=== PATIENT | female | born 1980 | race Hispanic/Latino ===

== ENCOUNTER 2021-12-25 15:08 | Emergency (ER) | payer OTHER ==
[~2021-12-25] VITALS: Ht 162.6 cm; Wt 78.0 kg
[2021-12-25 15:10] VITALS: BP 126/63
[2021-12-25 15:49] LABS: BASOPHILS % (AUTO) 0.3 % (0.0-5.0); EOSINOPHILS % (AUTO) 1.1 % (0.0-8.0); HEMATOCRIT 40.1 % (36-48); LYMPHOCYTES % (AUTO) 17.6 % (21.0-51.0); MEAN CORPUSCULAR HEMOGLOBIN 24.4 pg (27.0-33.0); MEAN CORPUSCULAR HGB CONC 29.9 g/dL (32.0-36.0); MEAN CORPUSCULAR VOLUME 81.5 fL (79-99); MONOCYTES % (AUTO) 7.4 % (3.0-13.0); NEUTROPHILS % (AUTO) 73.3 % (40.0-77.0); PLATELET COUNT (AUTO) 283 K/uL (130-400); RED BLOOD CELL COUNT(AUTO) 4.92 MIL/uL (4.00-5.50); RED CELL DISTRIBUTION WIDTH 14.7 % (11.0-15.5); WHITE BLOOD COUNT (AUTO) 7.4 K/uL (4.8-10.8)
[2021-12-25 15:59] LABS: ALBUMIN 3.4 g/dL (3.5-5.0); BILIRUBIN,TOTAL 0.2 mg/dL (0.2-1.0); CREATININE 0.8 mg/dL (0.5-1.5); POTASSIUM 3.7 mmol/L (3.5-5.1); TOTAL PROTEIN, SERUM 7.5 g/dL (6.0-8.3)
[2021-12-25 16:09] LABS: BILIRUBIN,URINE Moderate (NEGATIVE); COLOR,URINE Dark Yellow (YELLOW); GLUCOSE, URINE (UA) TRACE mg/dL (NEGATIVE); KETONES,URINE Trace mg/dL (NEGATIVE); LEUKOCYTE ESTERASE ,URINE Trace (NEGATIVE); NITRATE,URINE Negative (NEGATIVE); OCCULT BLOOD,URINE Moderate (NEGATIVE); PH,URINE 5.5 (5.0-8.0); PROTEIN,URINE POS 1+ mg/dL (NEGATIVE)
[2021-12-25 16:12] LABS: APPEARANCE,URINE CLOUDY (CLEAR)
[2021-12-25 16:14] LABS: HCG,QUAL RESULT NEGATIVE (NEGATIVE)
[2021-12-25] MEDS ORDERED: ONDANSETRON ODT 4MG TAB ONE (16:51)
[2021-12-25 16:56] LABS: BACTERIA,URINE Few /HPF (None Seen); MUCUS,URINE Few LPF (None Seen); RBC,URINE 0-1 /HPF (0-1); SQUAMOUS EPITHELIAL CELL,UR Moderate /HPF (0-2); WBC,URINE 0-1 /HPF (0-1)
[2021-12-25 16:57] LABS: CALCIUM OXALATE CRYSTALS,UR Moderate /LPF (None Seen)
[2021-12-25] MEDS ORDERED: ONDANSETRON ODT 4MG TAB SL ONE (17:00)
[2021-12-25] MEDS ORDERED: ONDA4TAB10 PO (17:21)
== END 2021-12-25 17:46 | disposition home or self-care (01) ==
LOC: EDH 15:08
DX: A08.4 Viral intestinal infection, unspecified (principal); E11.65 Type 2 diabetes mellitus with hyperglycemia; Z20.822 Contact with and (suspected) exposure to COVID-19; I10 Essential (primary) hypertension
CPT/HCPCS: 36415; 80053; 81001; 81025; 83605; 83690; 85025; 87635; 99283; C9803

== ENCOUNTER 2025-06-08 09:23 | Emergency (ER) | payer SELFPAY ==
[~2025-06-08] VITALS: Ht 162.6 cm; Wt 77.1 kg
[~2025-06-08 09:23] MED LIST: ONDA-243 PO
[2025-06-08] MEDS ORDERED: HYDROcodone/APAP 5/325 1 TAB TABLET PO ONE (10:00)
[2025-06-08] MEDS ORDERED: CLIN-141 PO (10:51)
[2025-06-08] MEDS ORDERED: IBUP-2077 PO (10:51)
--- NOTE | 2025-06-08 10:52 | ERN ---
ED Note History of Present Illness Stated Complaint: TOOTHACHE Chief Complaint: Tooth Ache/Pain Time Seen by MD: 10:10 Dictation: PATIENT IS A 45-YEAR-OLD FEMALE HERE WITH COMPLAINTS OF DENTAL PAIN AND GUM SWELLING TO TOOTH 11. AND 12 ONSET WAS TWO WEEKS AGO. NO FEVER NO CHILLS. SHE HAS BEEN ABLE TO EAT HOWEVER SHE SAID THE AREAS PAINFUL. SHE TOOK TWO AMOXICILLIN SHE GOT FROM [place] YESTERDAY AND SAID SHE IS GOING TO GO NEXT WEEK WHEN SHE GETS PAIN TO HAVE THE DENTAL WORK DONE IN [place]. SHE HAS NO LOCAL DOCTOR IN [facility] AND DOES NOT Allergies: Coded Allergies: No Known Allergies (Unverified Allergy, Unknown, 12/25/21) Home Meds Active Scripts Ibuprofen (Ibuprofen 800 mg Tab) 800 Mg Tab, 800 MG PO Q8H PRN for fever or pain, #30 TAB 0 Refills Prov:BHANU MURRELL NP 06/08/25 Clindamycin HCl (Clindamycin HCl) 300 Mg Capsule, 1 CAP PO QID for 10 Days, #40 CAP 0 Refills TAKE TWO CAPSULES BY MOUTH FOR 1ST DOSE, THEN ONE CAPSULE EVERY 6 HOURS UNTIL GONE. Prov:BHANU MURRELL NP 06/08/25 Ondansetron (Ondansetron Odt) 4 Mg Tab.rapdis, 4 MG PO TIDP, #21 TAB Prov:MAYELA KENNEDY 12/25/21 Past Medical History Past Medical History: Diabetes-Type II, Hypertension Additional Past Medical Hx: NON COMPLIANT W/ MEDS Surgical History: None Family History: Negative Social History: Negative History: Not Applicable LMP: Jun 06, 2025 RN Note Reviewed/Agreed w/PFSH: Yes Review of System Dictation CONSTITUTIONAL: NEGATIVE EXCEPT FOR HPI HEAD/FACE: NEGATIVE EXCEPT FOR HPI EENT: NEGATIVE EXCEPT FOR HPI DENTAL PAIN WITH GINGIVAL WE WILL SWELLING 11. AND12 RESPIRATORY: NEGATIVE EXCEPT FOR HPI GASTROINTESTINAL/ABDOMINAL: NEGATIVE EXCEPT FOR HPI GENITOURINARY: NEGATIVE EXCEPT FOR HPI MUSCULOSKELETAL: NEGATIVE EXCEPT FOR HPI INTEGUMENTARY: NEGATIVE EXCEPT FOR HPI NEUROLOGICAL/PSYCH: NEGATIVE EXCEPT FOR HPI HEMATOLOGIC/LYMPHATIC: NEGATIVE EXCEPT FOR HPI ALL SYSTEMS NEGATIVE, EXCEPT NOTED ABOVE. 13 POINT REVIEW OF SYSTEMS ASSESSED AND ALL NEGATIVE EXCEPT FOR ABOVE. Initial Vital Sign VS Vital Signs Date Time Temp Pulse Resp B/P (MAP) Pulse Ox O2 Delivery O2 Flow Rate FiO2 06/08/25 09:24 98.6 72 16 212/77 99 Room Air 0 06/08/25 11:46 21 Physical Exam Dictation NORMAL EXAM VITAL SIGNS REVIEWED GENERAL APPEARANCE: ALERT, ORIENTED X 3, MILD ACUTE DISTRESS, WELL DEVELOPED, NOURISHED. HEAD AND FACE: NON-TRAUMATIC. EYES: PERRL, PINK CONJUNCTIVAS, EYELID NO TRAUMA, ANTERIOR CHAMBER WITH ARCUS SENILIS. EARS: PINNAS INTACT AND NO SIGNS OF TRAUMA OR ERYTHEMA EAR CANALS CLEAR AND NO DISCHARGE TM NO ERYTHEMA NOSE: NO DISCHARGE, NO BLEEDING. OROPHARYNX: CARIES WITH GINGIVAL ERYTHEMA TENDERNESS TO TOOTH 11. AND 12. PHARYNX CLEAR,NO ERYTHEMA, TONSILS NO EXUDATES, NO ABSCESSES NOTED, MUCOUS MEMBRANE MOIST NECK: SUPPLE, NON-TENDER, NO THYROMEGALY, NO MASSES, NO JVD, NO BRUITS BREAST:DEFERRED CHEST:NO TENDERNESS, NO CREPITUS, NO PARADOXICAL MOVEMENT, NO RETRACTIONS LUNGS:CLEAR, WELL-VENTILATED, SYMMETRIC, NO RALES, NO WHEEZING, NO RHONCHI, NO STRIDOR, GOOD BREATH SOUNDS BILATERALLY HEART: REGULAR RATE, REGULAR RHYTHM, NO MURMUR, NO GALLOPS VASCULAR: NO PERIPHERAL EDEMA, ABDOMEN: SOFT, POSITIVE BOWEL SOUNDS, NONDISTENDED, NO GUARDING, NONTENDER, NO REBOUND, NO MASSES NO HEPATOMEGALY, NO SPLENOMEGALY, NO LOTT'S SIGN, NO HERNIAS. RECTAL: DEFERRED GENITAL: DEFERRED NEUROLOGICAL: NORMAL SPEECH, MOTOR FUNCTION INTACT, SENSORY FUNCTION INTACT MUSCULOSKELETAL: NECK NONTENDER, FULL RANGE OF MOTION, BACK NONTENDER, FULL RANGE OF MOTION, EXTREMITIES: NONTENDER, FULL RANGE OF MOTION SKIN: COLOR PINK, DRY, NO TURGOR, NO RASH, NO LACERATIONS, NO ABRASIONS, NO CONTUSIONS. LYMPHATIC: DEFERRED Results (Laboratory/Radiology) Laboratory/Radiology Laboratory Tests Test 06/08/25 10:00 06/08/25 10:31 Random Glucose 193 mg/dL (70-105) H Whole Blood Glucose 184 MG/DL (70-110) H Labs Reviewed?: Yes ED Course ED Course Orders Procedure Category Date Status Time ,Urine Test LAB 06/08/25 Logged 09:30 Hydrocodone/Apap PHA 06/08/25 Complete 5/325 (Stanley 5/325mg) 10:00 Glucose,Random LAB 06/08/25 Complete 09:32 Ibuprofen 800 Mg Tab PHA 06/08/25 Complete (Motrin) 11:00 Current Medications Medications (Trade) Dose Ordered Sig/Irving Route PRN Reason Start Time Stop Time Status Last Admin Dose Admin Acetaminophen/ Hydrocodone Bitart (NORco 5/325MG) 1 tab ONCE ONCE PO 06/08/25 10:00 06/08/25 10:48 DC Ibuprofen (moTRIN) 800 mg ONCE ONCE PO 06/08/25 11:00 06/08/25 11:01 DC 06/08/25 11:42 Vital Signs Date Time Temp Pulse Resp B/P (MAP) Pulse Ox O2 Delivery O2 Flow Rate FiO2 06/08/25 11:46 98.2 70 16 185/75 98 Room Air* 0 21 06/08/25 09:24 98.6 72 16 212/77 99 Room Air 0 1050/PATIENT WILL BE GIVEN IBUPROFEN BY MOUTH AND TOLD TO FOLLOW UP WITH HER DOCTOR IN [place] NEXT WEEK. SHE WILL BE GIVEN CLINDAMYCIN AND TOLD TO TAKE TWO CAPSULES FOR THE 1ST DOSE A LOADING DOSE THEN DIRECTED UNTIL GONE. Medical Decision Making MDM MEDICAL DECISION-MAKING BASED ON EXAMINATION AND IDENTIFICATION OF TOOTH DECAY AND GINGIVAL INVOLVEMENT PATIENT GIVEN IBUPROFEN FOR PAIN DISCHARGED HOME WITH IBUPROFEN AND CLINDAMYCIN TOLD SEE HER PRIMARY CARE DOCTOR IN [place] DX & DISP Disposition: Discharge Departure Impression: Primary Impression: Dental caries extending into pulp Additional Impression: Dentalgia Condition: Stable Scripts Ibuprofen (Ibuprofen 800 mg Tab) 800 Mg Tab 800 MG PO Q8H PRN for fever or pain, #30 TAB 0 Refills Prov: BHANU MURRELL NP 06/08/25 Clindamycin HCl (Clindamycin HCl) 300 Mg Capsule 1 CAP PO QID for 10 Days, #40 CAP 0 Refills TAKE TWO CAPSULES BY MOUTH FOR 1ST DOSE, THEN ONE CAPSULE EVERY 6 HOURS UNTIL GONE. Prov: BHANU MURRELL NP 06/08/25 Additional Instructions: FOLLOW-UP WITH PRIMARY CARE PROVIDER IN 1 TO 2 DAYS. TAKE MEDICATIONS DIRECTED HERE IN THE EMERGENCY ROOM. OKAY TO CONTINUE HOME MEDICATIONS UNLESS OTHERWISE DISCUSSED DURING YOUR VISIT IN THE EMERGENCY ROOM TODAY. RETURN TO YOUR NEAREST EMERGENCY ROOM IF SYMPTOMS WORSEN OR IF THERE IS NO IMPROVEMENT. CALL 911 IF YOU NEED IMMEDIATE ASSISTANCE. TAKE TYLENOL OR MOTRIN OVER-THE-C OUNTER NEEDED AND IF NO CONTRAINDICATIONS ARE PRESENT. INCREASE ORAL HYDRATION. A WOUND CULTURE OR URINE CULTURE WAS ORDERED HERE IN THE EMERGENCY ROOM DEPARTMENT PLEASE FOLLOW-UP WITH PRIMARY CARE PROVIDER AND ADVISE THEM TO GET REPEAT PORTS FROM OUR FACILITY. IF YOU HAD ANY RONNIE WRAP/SPLINTS THAT WERE APPLIED HERE, PLEASE DO NOT REMOVE THEM UNTIL YOU SEE YOUR PRIMARY CARE OR SPECIALTY. TAKE CLINDAMYCIN DIRECTED UNTIL GONE, TAKE TWO CAPSULES FOR THE 1ST DOSE AND THEN ONE CAPSULE EVERY 6 HOURS UNTIL GONE. TAKE IBUPROFEN 800 MG BY MOUTH EVERY8 HOURS WITH FOOD FOR THE NEXT TWO DAYS. SEE YOUR PRIMARY CARE DOCTOR IN [place] FOR YOUR DENTAL PAIN AND Referrals: SELF,REFERRAL (PCP) Time of Disposition: 10:50 I have reviewed the case, and I agree with, Diagnosis and Plan BHANU MURRELL NP Jun 08, 2025 10:52 SULLY MENDES DO Jun 08, 2025 15:07
[2025-06-08 11:46] VITALS: BP 185/75; PULSE 70; RESP 16; TEMP 98.3; O2SAT 98
== END 2025-06-08 12:08 | disposition home or self-care (01) ==
LOC: EDH 09:23
DX: K02.9 Dental caries, unspecified (principal); K08.89 Other specified disorders of teeth and supporting structures; E11.9 Type 2 diabetes mellitus without complications; I10 Essential (primary) hypertension; Z79.899 Other long term (current) drug therapy
CPT/HCPCS: 36415; 82947; 82948; 99283